=== PATIENT | male | born 1985 | race Hispanic/Latino ===

== ENCOUNTER 2022-04-16 09:03 | Day surgery (SDC) | payer OTHER ==
[2022-04-16] MEDS ORDERED: ACETAMINOPHEN 325 MG TABLET ONE (09:28)
[2022-04-16] MEDS ORDERED: DIPHENHYDRAMINE 25 MG TAB/CAP ONE (09:29)
[2022-04-16] MEDS ORDERED: NA CHLORIDE 0.9% 250 ML ONE (09:37)
[2022-04-16] MEDS ORDERED: INFLIXIMAB-ABDA 700 MG in NA CHLORIDE 0.9% 250 ML IV ONE (10:00)
[2022-04-16 12:56] VITALS: BMI 34.7
[2022-04-16 12:57] VITALS: BP 137/87; TEMP 97.4; O2SAT 100
== END 2022-04-16 12:28 | disposition home or self-care (01) ==
LOC: DS 09:03
PROVIDERS: ATTEND Internal Medicine Gastroenterology
DX: K51.90 Ulcerative colitis, unspecified, without complications (principal)
CPT/HCPCS: 96365; 96366; Q5104; J7050 ×2

== ENCOUNTER 2022-05-01 07:40 | Day surgery (SDC) | payer OTHER ==
[2022-05-01] MEDS ORDERED: DIPHENHYDRAMINE 25 MG TAB/CAP ONE (07:56)
[2022-05-01] MEDS ORDERED: NA CHLORIDE 0.9% 250 ML ONE (07:57)
[2022-05-01] MEDS ORDERED: ACETAMINOPHEN 500 MG TAB ONE (07:57)
[2022-05-01] MEDS ORDERED: INFLIXIMAB-ABDA 700 MG in NA CHLORIDE 0.9% 250 ML IV ONE (08:00)
[2022-05-01 08:21] VITALS: BMI 34.0
[2022-05-01 15:08] VITALS: BP 140/80; TEMP 98.3; O2SAT 99
== END 2022-05-01 11:09 | disposition home or self-care (01) ==
LOC: DS 07:40
PROVIDERS: ATTEND Internal Medicine Gastroenterology
DX: K51.90 Ulcerative colitis, unspecified, without complications (principal)
CPT/HCPCS: 96365; 96366; Q5104; J7050 ×2

== ENCOUNTER 2022-05-27 07:58 | Day surgery (SDC) | payer OTHER ==
[2022-05-27] MEDS ORDERED: ACETAMINOPHEN 325 MG TABLET ONE (08:23)
[2022-05-27] MEDS ORDERED: DIPHENHYDRAMINE 25 MG TAB/CAP ONE (08:23)
[2022-05-27 08:29] VITALS: BMI 34.0
[2022-05-27] MEDS ORDERED: INFLIXIMAB-ABDA 700 MG in NA CHLORIDE 0.9% 250 ML IV ONE (08:30)
[2022-05-27] MEDS ORDERED: NA CHLORIDE 0.9% 250 ML ONE (08:37)
[2022-05-27 11:24] VITALS: BP 110/72; TEMP 97.5; O2SAT 99
== END 2022-05-27 11:10 | disposition home or self-care (01) ==
LOC: DS 07:58
PROVIDERS: ATTEND Internal Medicine Gastroenterology
DX: K51.90 Ulcerative colitis, unspecified, without complications (principal)
CPT/HCPCS: 96365; 96366; J7050; Q5104

== ENCOUNTER 2022-09-18 07:29 | Day surgery (SDC) | payer OTHER ==
[2022-09-18] MEDS ORDERED: ACETAMINOPHEN 500 MG TAB ONE (07:48)
[2022-09-18] MEDS ORDERED: DIPHENHYDRAMINE 25 MG TAB/CAP ONE (07:48)
[2022-09-18] MEDS ORDERED: NA CHLORIDE 0.9% 250 ML ONE (07:52)
[2022-09-18 07:58] VITALS: BMI 33.3
[2022-09-18] MEDS ORDERED: INFLIXIMAB-ABDA 700 MG in NA CHLORIDE 0.9% 250 ML IV ONE (08:00)
[2022-09-18 10:45] VITALS: BP 101/65; TEMP 97.4; O2SAT 100
== END 2022-09-18 10:42 | disposition home or self-care (01) ==
LOC: DS 07:29
PROVIDERS: ATTEND Internal Medicine Gastroenterology
DX: K51.90 Ulcerative colitis, unspecified, without complications (principal)
CPT/HCPCS: 96365; 96366; Q5104; J7050 ×2